=== PATIENT | female | born 1940 | race Caucasian/White ===

== ENCOUNTER → 2018-11-21 14:28 | Outpatient (CLI) | payer MEDICARE, SELFPAY | PROVIDERS: PCP Internal Medicine; Visit Provider Family Medicine | DX: L89.892 Pressure ulcer of other site, stage 2 (principal); S42.001S Fracture of unspecified part of right clavicle, sequela | CPT/HCPCS: 97597; 99203; 99213 ==

== ENCOUNTER → 2018-11-30 13:17 | Outpatient (CLI) | payer MEDICARE, SELFPAY | PROVIDERS: PCP Internal Medicine; Visit Provider Family Medicine | DX: L89.893 Pressure ulcer of other site, stage 3 (principal); S41.001A Unspecified open wound of right shoulder, initial encounter | CPT/HCPCS: 11042; 87070; 87075; 87077; 87186; 87205; 99213 ==

== ENCOUNTER → 2018-12-07 09:37 | Outpatient (CLI) | payer MEDICARE, SELFPAY | PROVIDERS: PCP Internal Medicine; Visit Provider Family Medicine | DX: L89.893 Pressure ulcer of other site, stage 3 (principal); S41.001A Unspecified open wound of right shoulder, initial encounter | CPT/HCPCS: 11042 ==

== ENCOUNTER → 2018-12-21 09:06 | Outpatient (CLI) | payer MEDICARE, SELFPAY | PROVIDERS: PCP Internal Medicine; Visit Provider Family Medicine | DX: L89.893 Pressure ulcer of other site, stage 3 (principal); S41.001A Unspecified open wound of right shoulder, initial encounter; L89.313 Pressure ulcer of right buttock, stage 3 | CPT/HCPCS: 11042; 87070; 87075; 87077; 87186; 87205; 99214 ==

== ENCOUNTER → 2018-12-28 10:16 | Outpatient (CLI) | payer MEDICARE, SELFPAY | PROVIDERS: PCP Internal Medicine; Visit Provider Family Medicine | DX: L89.892 Pressure ulcer of other site, stage 2 (principal); L89.313 Pressure ulcer of right buttock, stage 3; L08.9 Local infection of the skin and subcutaneous tissue, unspecified | CPT/HCPCS: 11042; 99214 ==

== ENCOUNTER → 2019-01-11 11:31 | Outpatient (CLI) | payer MEDICARE, SELFPAY | PROVIDERS: PCP Internal Medicine; Visit Provider Family Medicine | DX: L89.893 Pressure ulcer of other site, stage 3 (principal); S41.001A Unspecified open wound of right shoulder, initial encounter; L89.313 Pressure ulcer of right buttock, stage 3; L08.9 Local infection of the skin and subcutaneous tissue, unspecified | CPT/HCPCS: 11042; 87070; 87075; 87077; 87205 ==

== ENCOUNTER → 2019-01-18 10:46 | Outpatient (CLI) | payer MEDICARE, SELFPAY | PROVIDERS: PCP Internal Medicine; Visit Provider Family Medicine | DX: L89.893 Pressure ulcer of other site, stage 3 (principal); S41.001A Unspecified open wound of right shoulder, initial encounter; L89.313 Pressure ulcer of right buttock, stage 3 | CPT/HCPCS: 11042 ==

== ENCOUNTER → 2019-01-25 13:05 | Outpatient (CLI) | payer MEDICARE, SELFPAY | PROVIDERS: PCP Internal Medicine; Visit Provider Family Medicine | DX: L89.893 Pressure ulcer of other site, stage 3 (principal); S41.001A Unspecified open wound of right shoulder, initial encounter; L89.313 Pressure ulcer of right buttock, stage 3 | CPT/HCPCS: 11042 ==

== ENCOUNTER → 2019-02-01 11:17 | Outpatient (CLI) | payer MEDICARE, SELFPAY | PROVIDERS: PCP Internal Medicine; Visit Provider Family Medicine | DX: L89.313 Pressure ulcer of right buttock, stage 3 (principal); L89.893 Pressure ulcer of other site, stage 3 | CPT/HCPCS: 99214 ==

== ENCOUNTER → 2019-02-08 09:47 | Outpatient (CLI) | payer MEDICARE, SELFPAY | PROVIDERS: PCP Internal Medicine; Visit Provider Family Medicine | DX: L89.893 Pressure ulcer of other site, stage 3 (principal); S41.001A Unspecified open wound of right shoulder, initial encounter; L89.313 Pressure ulcer of right buttock, stage 3 | CPT/HCPCS: 11042; 99213 ==

== ENCOUNTER → 2019-02-15 09:58 | Outpatient (CLI) | payer MEDICARE, SELFPAY | PROVIDERS: PCP Internal Medicine; Visit Provider Family Medicine | DX: L89.893 Pressure ulcer of other site, stage 3 (principal); S41.001A Unspecified open wound of right shoulder, initial encounter | CPT/HCPCS: 11042 ==

== ENCOUNTER → 2019-02-22 11:25 | Outpatient (CLI) | payer MEDICARE, SELFPAY ==
--- NOTE | 2019-02-22 11:29 | DI.RAD.S_ITS ---
PROCEDURE: XR CLAVICLE RT INDICATIONS: RT SHOULDER PAIN TECHNIQUE: 2 views of the clavicle were acquired. COMPARISON: None. FINDINGS: Bones: No fractures or dislocations. No suspicious bony lesions. Mild a.c. joint osteoarthritis. No definite acute trauma found. Soft tissues: No suspicious soft tissue calcifications. IMPRESSION: Mild a.c. joint osteoarthritis without trauma. Dictated by: Vicente Gutierrez M.D. on 02/22/2019 at 12:28 Approved by: Vicente Gutierrez M.D. on 02/22/2019 at 12:29
== END ==
PROVIDERS: Visit Provider Family Medicine
DX: S41.001A Unspecified open wound of right shoulder, initial encounter (principal); L89.893 Pressure ulcer of other site, stage 3
CPT/HCPCS: 11042; 73000

== ENCOUNTER → 2019-02-22 13:13 | Outpatient (CLI) | payer MEDICARE, SELFPAY | PROVIDERS: Visit Provider Family Medicine | DX: L89.894 Pressure ulcer of other site, stage 4 (principal); S41.001A Unspecified open wound of right shoulder, initial encounter | CPT/HCPCS: 11042 ==

== ENCOUNTER → 2019-03-01 10:02 | Outpatient (CLI) | payer MEDICARE, SELFPAY | PROVIDERS: Visit Provider Family Medicine | DX: L89.894 Pressure ulcer of other site, stage 4 (principal); S41.001A Unspecified open wound of right shoulder, initial encounter | CPT/HCPCS: 11042; 97607 ==

== ENCOUNTER → 2019-03-08 10:23 | Outpatient (CLI) | payer MEDICARE, SELFPAY | PROVIDERS: Visit Provider Family Medicine | DX: L89.894 Pressure ulcer of other site, stage 4 (principal); S41.001A Unspecified open wound of right shoulder, initial encounter; Z99.2 Dependence on renal dialysis; N18.9 Chronic kidney disease, unspecified | CPT/HCPCS: 87070; 87077; 87186; 87205; 97597 ==

== ENCOUNTER → 2019-03-12 06:04 | Outpatient (CLI) | payer MEDICARE, SELFPAY ==
--- NOTE | 2019-03-12 | DI.MRI.S_ITS ---
PROCEDURE: MR CHEST WO CON INDICATIONS: Clavicle at the pain TECHNIQUE: Coronal T1 and STIR, axial T1 and T2 with fat saturation, sagittal STIR and T1 fat saturation, axial T1 in and out of phase obtained through the right clavicle. COMPARISON: [facility], CR, XR CLAVICLE RT, 02/22/2019, 11:37. FINDINGS: Image quality: There is mild motion artifact and inhomogeneous fat saturation. Bones: There is mild bone marrow edema within the right clavicular midshaft with an associated small region of cortical erosion anterosuperiorly. There is also adjacent mild periosteal edema. No fractures identified. There is mild acromioclavicular joint degeneration. More proximally, there is also mild degeneration at the sternoclavicular joint with a small joint effusion there there is a small right glenohumeral joint effusion with mild degeneration of the glenohumeral joint. A small amount of subacromial/subdeltoid bursa fluid is also demonstrated. Soft tissues: There is soft tissue edema in the right supraclavicular region tracking inferiorly along the chest wall to the superior intercostal spaces. There are multiple associated mildly enlarged supraclavicular lymph nodes measuring up to 1 cm in short axis. No discrete fluid collection to suggest an abscess. A small amount of subacromial/subdeltoid bursal fluid is noted in the right shoulder. Within the right lung, there are small peripheral areas of pleural thickening which are incompletely evaluated. IMPRESSION: 1. Bone marrow edema within the right clavicular midshaft with associated cortical erosion and periosteal edema consistent with osteomyelitis. 2. Adjacent supraclavicular soft tissue edema likely represents cellulitis. No discrete abscess identified. There is extension inferiorly in the chest wall to the superior intercostal spaces. 3. Mildly enlarged right supraclavicular lymph nodes are nonspecific but likely reactive. 4. Small areas of pleural thickening demonstrated in the right hemithorax. Recommend dedicated chest CT for further evaluation. Dictated by: Deon De La Torre M.D. on 03/12/2019 at 11:54 Approved by: Deon De La Torre M.D. on 03/12/2019 at 13:44
== END ==
PROVIDERS: Visit Provider Family Medicine
DX: M25.511 Pain in right shoulder (principal); S41.001A Unspecified open wound of right shoulder, initial encounter; L89.894 Pressure ulcer of other site, stage 4; R60.9 Edema, unspecified; R59.0 Localized enlarged lymph nodes; M89.8X1 Other specified disorders of bone, shoulder
CPT/HCPCS: 71550

== ENCOUNTER → 2019-03-15 10:11 | Outpatient (CLI) | payer MEDICARE, SELFPAY | PROVIDERS: Visit Provider Family Medicine | DX: L89.894 Pressure ulcer of other site, stage 4 (principal); S41.001A Unspecified open wound of right shoulder, initial encounter; M86.9 Osteomyelitis, unspecified; S42.001S Fracture of unspecified part of right clavicle, sequela | CPT/HCPCS: 11042; 11044; 11047; 99212; 99213; 99214 ==

== ENCOUNTER → 2019-03-29 15:56 | Outpatient (CLI) | payer MEDICARE, SELFPAY | PROVIDERS: Referring Provider Internal Medicine Nephrology; Visit Provider Family Medicine | DX: L89.894 Pressure ulcer of other site, stage 4 (principal); S41.001D Unspecified open wound of right shoulder, subsequent encounter; M86.9 Osteomyelitis, unspecified | CPT/HCPCS: 99213 ==

== ENCOUNTER → 2019-04-05 11:11 | Outpatient (CLI) | payer MEDICARE, SELFPAY | PROVIDERS: Visit Provider Family Medicine | DX: L89.894 Pressure ulcer of other site, stage 4 (principal); S41.001D Unspecified open wound of right shoulder, subsequent encounter; M86.9 Osteomyelitis, unspecified | CPT/HCPCS: 99213 ==

== ENCOUNTER 2019-07-12 10:46 | Emergency (ER) | payer MEDICARE, SELFPAY ==
[2019-07-12 11:03] VITALS: BP 157/54; PULSE 71; RESP 18; TEMP 36.5; O2SAT 99
--- NOTE | 2019-07-12 11:06 | ED_ITS ---
HPI - Extremity Problem <Hyacinth Go PA-C - Last Filed: 07/12/19 13:13> General Chief complaint: Extremity Problem,Nontraumatic Stated complaint: swelling/bleeding on toe Time Seen by Provider: 07/12/19 10:50 Source: patient and family Mode of arrival: Ambulatory Limitations: no limitations History of Present Illness HPI Narrative: This 79-year-old female comes to ED today directed by chemical process equipment operator per she and her who is her main caregiver. She has had chronic problems with her left 2nd toe secondary to leg length discrepancy and tends to put her weight on the tip of that toe. For at least the last couple of weeks, she has had a sore on the toe. It is not painful. Has been has been bandaging it and putting Neosporin on. She denies pain in the toe. states it does not look at all different or changed today or worse in any way. She denies fever. Denies any new swelling in the lower extremities, chest pain, other new complaints on systems review. She denies history of PAD. states main issue is that she was not able to get in to Podiatry for several weeks. PMH: Hypothyroidism, depression, HTN, acid reflux, chronic renal failure on dialysis, osteoarthritis, history of throat cancer, reactive airways, leg-length discrepancy PSH: Left hip fusion, 3 neck/throat resections for cancer, 13 surgeries in total Related Data Home Medications Medication Instructions Recorded Confirmed B complex-vitamin C-folic acid 1 tab PO DAILY 07/12/19 07/12/19 [Yola-Nathen] albuterol sulfate 2.5 mg INHALATION TID PRN 07/12/19 07/12/19 alprazolam 0.25 mg PO BID 07/12/19 07/12/19 amlodipine 5 mg PO DAILY 07/12/19 07/12/19 calcitriol 0.25 mcg PO DAILY 07/12/19 07/12/19 calcium carbonate [Tums Ultra] 3,000 mg PO TID 07/12/19 07/12/19 cholestyramine-aspartame 4 g PO DAILY 07/12/19 07/12/19 [Prevalite] clonazepam 0.5 mg PO BID 07/12/19 07/12/19 cyanocobalamin (vitamin B-12) 1,000 mcg IM QMONTH 07/12/19 07/12/19 ergocalciferol (vitamin D2) 50,000 unit PO QWEEK 07/12/19 07/12/19 fluticasone propion-salmeterol 1 puff INHALATION BID 07/12/19 07/12/19 [Mckinley Inhub] hydrocodone-acetaminophen 1 tab PO TID PRN 07/12/19 07/12/19 levothyroxine 50 mcg PO DAILY 07/12/19 07/12/19 metoprolol tartrate 25 mg PO DAILY 07/12/19 07/12/19 nortriptyline 50 mg PO BEDTIME 07/12/19 07/12/19 omeprazole 20 mg PO BID 07/12/19 07/12/19 pantoprazole 40 mg PO DAILY 07/12/19 07/12/19 quetiapine 25 mg PO DAILY 07/12/19 07/12/19 Allergies Allergy/AdvReac Type Severity Reaction Status Date / Time No Known Drug Allergies Allergy Verified 07/12/19 11:08 Review of Systems <Hyacinth Go PA-C - Last Filed: 07/12/19 13:13> Review of Systems ROS Unobtainable: All systems reviewed & are unremarkable except as noted in HPI and below Patient History <Hyacinth Go PA-C - Last Filed: 07/12/19 13:13> Social History Smoking Status: Former smoker Exam <Hyacinth Go PA-C - Last Filed: 07/12/19 13:13> Narrative Exam Narrative: GENERAL APPEARANCE: Patient sitting comfortably, in no distress. LUNGS: Clear to auscultation bilaterally. HEART: Rate and rhythm regular without murmur, normal S1 and S2, no S3 or S4. EXTREMITIES: No edema, no cyanosis, feet are warm and pink, pulse is not easily palpable but bilateral PT and DP pulses biphasic, easily audible with Doppler DERMATOLOGIC: Left 2nd toe tip there is dark brown eschar, hyperkeratotic. No tenderness to touch. The more plantar portion is slightly friable, no bleeding. When pared down, there appears to be normal tissue underneath. Initial Vital Signs Initial Vital Signs: Vital Signs Temperature 97.7 F 07/12/19 11:03 Pulse Rate 71 01/09/20 11:03 Respiratory Rate 18 07/12/19 11:03 Blood Pressure 157/54 H 07/12/19 11:03 Pulse Oximetry 99 07/12/19 11:03 <Ahmet Colon DO - Last Filed: 07/12/19 18:42> Initial Vital Signs Initial Vital Signs: Vital Signs Temperature 97.7 F 07/12/19 11:03 Pulse Rate 71 07/12/19 11:03 Respiratory Rate 18 07/12/19 11:03 Blood Pressure 157/54 H 07/12/19 11:03 Pulse Oximetry 99 07/12/19 11:03 Procedures <Hyacinth Go PA-C - Last Filed: 07/12/19 13:13> [facility] [place] Procedure Name of Procedure: Left 2nd toe eschar/callous pared down gently with 15. Blade, no underlying necrotic or infected appearing tissue Course <CHEYANNE Lange Last Filed: 07/12/19 13:13> Vital Signs Vital signs: Vital Signs - 8 hr 07/12/19 11:03 07/12/19 12:01 Temperature 97.7 F Pulse Rate 71 66 Respiratory Rate 18 Blood Pressure 157/54 H 131/57 L Pulse Oximetry 99 99 <DO Matthew Morley Last Filed: 07/12/19 18:42> Vital Signs Vital signs: Vital Signs - 8 hr 07/12/19 11:03 07/12/19 12:01 Temperature 97.7 F Pulse Rate 71 66 Respiratory Rate 18 Blood Pressure 157/54 H 131/57 L Pulse Oximetry 99 99 Discharge Plan Departure Patient Disposition: Home Clinical Impression: Eschar of toe Discharge Date/Time: 07/12/19 12:03 Activity Restrictions/Additional Instructions: On exam today your toe does not appear to be infected or lacking blood supply. It looks like the irritation from your stepping on it caused scabbing and callus on top of that. You can continue taking care of this as you have been at home, but please change to using foam or corn pads with the middle cut out around the scab to keep pressure off of the area. Dr. Quintana can see you on Tuesday, J anuary 15, at 10:00 a.m.. Please keep that appointment so that you can talk about how to keep this from getting worse since it is due to your leg length discrepancy. She may be able to help with orthotic or other device to keep the pressure off of that toe. You should be seen right away if you develop new symptoms such as pain, redness, or fever, in the interim Prescriptions: No Action quetiapine 25 mg tablet 25 mg PO DAILY RF: 0 hydrocodone-acetaminophen 5-325 mg tablet 1 tab PO TID PRN (Reason: pain) RF: 0 clonazepam 0.5 mg tablet 0.5 mg PO BID RF: 0 amlodipine 5 mg tablet 5 mg PO DAILY RF: 0 levothyroxine 50 mcg tablet 50 mcg PO DAILY RF: 0 pantoprazole 40 mg tablet,delayed release (DR/EC) 40 mg PO DAILY RF: 0 cyanocobalamin (vitamin B-12) 1,000 mcg/mL solution 1,000 mcg IM QMONTH RF: 0 Yola-Nathen 0.8 mg tablet 1 tab PO DAILY RF: 0 ergocalciferol (vitamin D2) 50,000 unit capsule 50,000 unit PO QWEEK RF: 0 fluticasone propion-salmeterol [Wixela Inhub] 100-50 mcg/dose blister with device 1 puff INHALATION BID RF: 0 metoprolol tartrate 25 mg tablet 25 mg PO DAILY RF: 0 albuterol sulfate 2.5 mg /3 mL (0.083 %) Solution For Nebulization 2.5 mg INHALATION TID PRN (Reason: Congestion) RF: 0 calcium carbonate [Tums Ultra] 400 mg calcium (1,000 mg) Tablet,Chewable 3,000 mg PO TID RF: 0 alprazolam 0.25 mg Tablet 0.25 mg PO BID RF: 0 omeprazole 20 mg Capsule,Delayed Release(Dr/Ec) 20 mg PO BID RF: 0 calcitriol 0.25 mcg Capsule 0.25 mcg PO DAILY RF: 0 nortriptyline 50 mg Capsule 50 mg PO BEDTIME RF: 0 Prevalite 4 gram Powder 4 g PO DAILY RF: 0 Referrals: Kirti Quintana DPM [Physician] - Purnima Rogers PA-C [Non-Staff] -
[2019-07-12 12:01] VITALS: BP 131/57; PULSE 66; O2SAT 99
== END 2019-07-12 12:03 | disposition home or self-care (01) ==
PROVIDERS: Emergency Provider Internal Medicine
DX: R23.4 Changes in skin texture (principal)
CPT/HCPCS: 99281; 99282